=== PATIENT | male | born 1940 | race Caucasian/White ===

== ENCOUNTER 2018-09-05 08:17 | Day surgery (SDC) | payer MEDICARE ==
[~2018-09-05 08:17] MED LIST: Lactated Ringers 1,000 ML IV SCH; Sodium Chloride 0.9% 10 ML Syringe FLUSH PRN
[2018-09-05] MEDS ORDERED: Propofol 200 MG/20 ML SDV IV ONE (08:18)
[2018-09-05] MEDS ORDERED: Midazolam 1 MG/ML 2 ML SDV IV ONE (08:18)
--- NOTE | 2018-09-05 10:21 | PCM.OPNOTE ---
- General Post-Op/Procedure Note Date of Surgery/Procedure: 09/05/18 Operative Procedure(s): c scope with bx Findings: ascending colon polyp Pre Op Diagnosis: screening Post-Op Diagnosis: ascending colon polyp Anesthesia Technique: MAC Primary Surgeon: Familia Torres Anesthesia Provider: Nancy Rowell Pathology: ascending colon polyp Complications: None Condition: Good Free Text/Narrative:: see dictation
--- NOTE | 2018-09-05 13:46 | OR ---
DATE OF OPERATION: 09/05/2018 SURGEON: Familia Torres MD PROCEDURE PERFORMED: Colonoscopy with cold forceps biopsy. PREOPERATIVE DIAGNOSIS: Need for screening C. POSTOPERATIVE DIAGNOSIS: Ascending colon polyp. INDICATIONS FOR PROCEDURE: This is a 78-year-old white male who presents for followup colonoscopy for screening. DESCRIPTION OF OPERATION: After an excellent IV sedation was administered, digital rectal exam was performed. No marked abnormality was noted. Flexible colonoscope was inserted and advanced to cecum. Prep was excellent. The following findings were noted. Ascending colon: A small polypoid lesion, biopsied with cold biopsy forceps and sent for permanent. Transverse colon: Unremarkable. Descending colon: Unremarkable. Sigmoid and Rectum: Unremarkable. Colon was deflated. Scope was removed. The patient tolerated the procedure well. Results by letter. /[id number] /MODL
== END 2018-09-05 11:15 | disposition home or self-care (01) ==
LOC: FB.SDS 08:17
PROVIDERS: ATTEND Surgery
DX: Z12.11 Encounter for screening for malignant neoplasm of colon (principal); D12.2 Benign neoplasm of ascending colon; E78.5 Hyperlipidemia, unspecified; Z80.0 Family history of malignant neoplasm of digestive organs; Z79.899 Other long term (current) drug therapy
CPT/HCPCS: 00811; 45380; 88305; J2250; J2704; J7120

== ENCOUNTER 2024-06-19 06:15 | Day surgery (SDC) | payer MEDICARE ==
[~2024-06-19 06:15] MED LIST changes: -Lactated Ringers 1,000 ML IV SCH
[2024-06-19] MEDS ORDERED: Propofol 200 MG/20 ML SDV IV ONE (06:16)
[2024-06-19] MEDS ORDERED: Lidocaine 2% 100 MG/5 ML Syringe IVPUSH ONE (06:16)
[2024-06-19] MEDS: Lactated Ringers 1,000 ML IV SCH (07:25)
[2024-06-19] MEDS: Simethicone Drops 40 MG/0.6 ML 30 ML Bottle PO ONE (07:37)
== END 2024-06-19 09:04 | disposition home or self-care (01) ==
LOC: FB.SDS 06:15
PROVIDERS: ATTEND Surgery
DX: Z12.11 Encounter for screening for malignant neoplasm of colon (principal); K57.30 Diverticulosis of large intestine without perforation or abscess without bleeding; K55.20 Angiodysplasia of colon without hemorrhage; E78.5 Hyperlipidemia, unspecified; Z86.0100 Personal history of colon polyps, unspecified; Z87.891 Personal history of nicotine dependence; Z79.899 Other long term (current) drug therapy
CPT/HCPCS: A9270-GY; J2704; J7120